=== PATIENT | male | born 1965 | race Caucasian/White ===

== ENCOUNTER 2023-02-23 10:28 | Emergency (ER) | payer SELFPAY ==
[2023-02-23 12:09] LABS: CORONAVIRUS COVID-19 NAA NEGATIVE (NEGATIVE); INFLUENZA A NAA NEGATIVE (NEGATIVE); INFLUENZA B NAA NEGATIVE (NEGATIVE); RESPIRATORY SYNCYTIAL VIR NAA NEGATIVE (NEGATIVE)
== END 2023-02-23 17:25 | disposition home or self-care (01) ==
LOC: MW.ED 10:28
DX: K52.9 Noninfective gastroenteritis and colitis, unspecified (principal); Z20.822 Contact with and (suspected) exposure to COVID-19
CPT/HCPCS: 0241U; 99284; 99283